=== PATIENT | female | born 1970 | race Caucasian/White ===

== ENCOUNTER 2019-03-08 22:02 | Emergency (ER) | payer MEDICAID, OTHER ==
[2019-03-09 00:42] LABS: URINE BLOOD (Dip) POC 2+ (NEGATIVE); URINE KETONES (Dip) POC Negative (NEGATIVE); URINE LEUKOCYTE EST (Dip) POC 3+ (NEGATIVE); URINE NITRITE (Dip) POC Negative (NEGATIVE); URINE TOTAL PROTEIN POC 2+ (NEGATIVE)
[2019-03-09 00:42] LABS: URINE PH (Dip) POC 5.5 (5.0-8.5)
== END 2019-03-09 01:04 | disposition home or self-care (01) ==
LOC: FTE 22:02
DX: A60.09 Herpesviral infection of other urogenital tract (principal); R10.2 Pelvic and perineal pain; Z79.84 Long term (current) use of oral hypoglycemic drugs
CPT/HCPCS: 81003; 81025; 99284